=== PATIENT | female | born 2000 | race Two or more races ===

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

== ENCOUNTER 2022-10-06 20:23 | Inpatient (IN) | payer OTHER ==
[~2022-10-06] VITALS: Ht 170.2 cm; Wt 68.0 kg
== END 2022-10-11 15:47 | disposition home or self-care (01) | DRG 832 ==
LOC: ER 20:23 → MEDJ 10-08 11:57
PROVIDERS: ADMIT Specialist; ATTEND Specialist
PROC: BW40ZZZ Ultrasonography of Abdomen (ICD-10-PCS; principal; 2022-10-06)
PROC: BU4CZZZ Ultrasonography of Uterus and Ovaries (ICD-10-PCS; 2022-10-07)
PROC: BF37ZZZ Magnetic Resonance Imaging (MRI) of Pancreas (ICD-10-PCS; 2022-10-08)
PROC: 0FC98ZZ Extirpation of Matter from Common Bile Duct, Via Natural or Artificial Opening Endoscopic (ICD-10-PCS; 2022-10-10)
PROC: 0F798ZZ Dilation of Common Bile Duct, Via Natural or Artificial Opening Endoscopic (ICD-10-PCS; 2022-10-10)
PROC: 0FPD8DZ Removal of Intraluminal Device from Pancreatic Duct, Via Natural or Artificial Opening Endoscopic (ICD-10-PCS; 2022-10-10)
DX: O99.611 Diseases of the digestive system complicating pregnancy, first trimester (principal); K80.51 Calculus of bile duct without cholangitis or cholecystitis with obstruction; K80.71 Calculus of gallbladder and bile duct without cholecystitis with obstruction; Z3A.10 10 weeks gestation of pregnancy; Z20.822 Contact with and (suspected) exposure to COVID-19